=== PATIENT | female | born 1985 | race Caucasian/White ===

== ENCOUNTER 2018-05-09 21:05 | Emergency (ER) | payer SELFPAY ==
[~2018-05-09] VITALS: Ht 170.2 cm; Wt 113.4 kg
[~2018-05-09 21:05] MED LIST: ALBU8.5H2 IH; BPR100T GT; IBP800T PO; MONT10TA21 PO; SLMFT1E INH; TRM50T PO; VARE1TAB17 PO
--- OUTSIDE RECORDS SUMMARY | 2018-05-09 21:09 | XMS REPORT ---
Author LEIF Redmond Organization [employer] Address Unknown Phone Unavailable Care Team Providers Care Industrial Cook Name Role Phone LEIF MONROE CP Unavailable Allergies, Adverse Reactions, Alerts Substance Reaction Event Type Latex, Natural Rubber Info Not Available Non Drug Allergy Problems Problem Type Condition Code Onset Dates Condition Status Assessment Tinea versicolor B36.0 Active Problem Tinea versicolor B36.0 Active Medications Medication Code System Code Instructions Start Date End Date Status Dosage Ketoconazole [facility] [address]-78 200 MG Orally Once a day November 08, 2015 December 08, 2015 1 tablet Ketoconazole [facility] [address]-46 2 % Externally Once a day November 08, 2015 1 application to affected area Procedures Procedure Coding System Code Date Office Visit, New Pt., Level 3 CPT-4 20141 November 08, 2015 Vital Signs Date/Time: November 08, 2015 Temperature 98.3 F Weight 303 lbs Height 67 in BMI 47.45 Index Blood Pressure Diastolic 76 mmHg Blood Pressure Systolic 120 mmHg Cardiac Monitoring Heart Rate 88 bpm Results No Known Results Summary Purpose eClinicalWorks Submission
--- OUTSIDE RECORDS SUMMARY | 2018-05-09 21:09 | XMS REPORT ---
Author Author LEIF MONROE [facility] Address [address] [place] [address] Care Team Providers Care Crystallography Teacher Name Role Phone LEIF MONROE Unavailable PROBLEMS Type Condition ICD9-CM Code IKG61-OD Code Onset Dates Condition Status SNOMED Code Problem Acquired hypothyroidism E03.9 Active 787370918 Problem Bronchitis J40 Active 59551943 Problem Obesity E66.9 Active 554601388 Problem Tinea versicolor B36.0 Active 49760421 Problem Moderate single current episode of major depressive disorder F32.1 Active 63611713 Problem Irregular menses N92.6 Active 79241401 ALLERGIES Substance Reaction Event Type Date Status Latex, Natural Rubber Unknown Non Drug Allergy Sep, Active SOCIAL HISTORY Never Assessed PLAN OF CARE Activity Details Follow Up 4 Weeks Reason:recheck hypothyroid VITAL SIGNS Height 67 in 2016-10-10 Weight 335.6 lbs 2016-10-10 Temperature 98.4 degrees Fahrenheit 2016-10-10 Heart Rate 88 bpm 2016-10-10 Respiratory Rate 18 2016-10-10 BMI 52.56 kg/m2 2016-10-10 Blood pressure systolic 132 mmHg 2016-10-10 Blood pressure diastolic 84 mmHg 2016-10-10 MEDICATIONS Medication Instructions Dosage Frequency Start Date End Date Duration Status PredniSONE 10 mg Orally twice a day 1 tablet 12h Sep, Sep, 05 days Active Amoxicillin 875 MG Orally every 12 hrs 1 tablet 12h Sep, Sep, 10 day(s) Active ProAir HFA 108 (90 Base) MCG/ACT Inhalation every 4 hrs 2 puffs as needed 4h Sep, Active Lexapro 10 mg Orally Once a day 1 tablet 24h Sep, 30 day(s) Active RESULTS Name Result Date Reference Range TSH W/ FREE T4 2016-10-10 TSH 7.190 0.450-4.500 T4,Free(Direct) 0.78 0.82-1.77 CBC 2016-10-10 WBC 7.6 3.4-10.8 RBC 4.73 3.77-5.28 Hemoglobin 13.0 11.1-15.9 Hematocrit 39.9 34.0-46.6 MCV 84 79-97 MCH 27.5 26.6-33.0 MCHC 32.6 31.5-35.7 RDW 14.1 12.3-15.4 Platelets 280 150-379 Neutrophils 66 Lymphs 23 Monocytes 9 Eos 2 Basos 0 Neutrophils (Absolute) 4.9 1.4-7.0 Lymphs (Absolute) 1.8 0.7-3.1 Monocytes(Absolute) 0.7 0.1-0.9 Eos (Absolute) 0.2 0.0-0.4 Baso (Absolute) 0.0 0.0-0.2 Immature Granulocytes 0 Immature Grans (Abs) 0.0 0.0-0.1 LIPID PANEL 2016-10-10 Cholesterol, Total 199 100-199 Triglycerides 123 0-149 HDL Cholesterol 33 >39 VLDL Cholesterol Doron 25 5-40 LDL Cholesterol Calc 141 0-99 CMP 2016-10-10 Glucose, Serum 115 65-99 BUN 11 6-20 Creatinine, Serum 0.57 0.57-1.00 eGFR If NonAfricn Am 124 >59 eGFR If Africn Am 143 >59 BUN/Creatinine Ratio 19 8-20 Sodium, Serum 141 134-144 Potassium, Serum 4.8 3.5-5.2 Chloride, Serum 104 96-106 Carbon Dioxide, Total 21 18-29 Calcium, Serum 8.9 8.7-10.2 Protein, Total, Serum 6.7 6.0-8.5 Albumin, Serum 3.7 3.5-5.5 Globulin, Total 3.0 1.5-4.5 A/G Ratio 1.2 1.2-2.2 Bilirubin, Total <0.2 0.0-1.2 Alkaline Phosphatase, S 138 39-117 AST (SGOT) 12 0-40 ALT (SGPT) 22 0-32 PROCEDURES Procedure Date Ordered Result Body Site ASSAY THYROID STIM HORMONE October 10, 2016 ASSAY OF FREE THYROXINE October 10, 2016 VENIPUNCT, ROUTINE* October 10, 2016 COMPREHEN METABOLIC PANEL October 10, 2016 COMPLETE CBC W/AUTO DIFF WBC October 10, 2016 LIPID PANEL October 10, 2016 IMMUNIZATIONS No Known Immunizations MEDICAL (GENERAL) HISTORY Type Description Date Medical History asthma Medical History Hypothyroidism Surgical History cholecystectomy 2002 Surgical History tubal ligation 07/2015 Hospitalization History surgeries
--- OUTSIDE RECORDS SUMMARY | 2018-05-09 21:09 | XMS REPORT ---
Author Author LEIF MONROE [facility] e[employer] Address Unknown Phone Unavailable Care Team Providers Care Forensic Chemist Name Role Phone LEIF MONROE Unavailable Allergies No Known Allergies Problems Problem Type Condition Code Onset Dates Condition Status Problem Irregular menses N92.6 Active Problem Obesity E66.9 Active Problem Post- depression F53 Active Problem Tinea versicolor B36.0 Active Medications Medication Code System Code Instructions Start Date End Date Status Dosage Levothyroxine Sodium [facility] [address]-78 75 MCG Orally Once a day November 24, 2015 1 tablet Results No Known Results Summary Purpose eClinicalWorks Submission
--- OUTSIDE RECORDS SUMMARY | 2018-05-09 21:09 | XMS REPORT ---
Author Author LEIF MONROE [facility] Address [address] [place] [address] Care Team Providers Care Pediatric Speech Therapist Name Role Phone LEIF MONROE Unavailable PROBLEMS Type Condition ICD9-CM Code VIQ91-DM Code Onset Dates Condition Status SNOMED Code Problem Acquired hypothyroidism E03.9 Active 735566788 Problem Bronchitis J40 Active 74632104 Problem Obesity E66.9 Active 712827556 Problem Tinea versicolor B36.0 Active 51833509 Problem Moderate single current episode of major depressive disorder F32.1 Active 98578071 Problem Irregular menses N92.6 Active 37018394 ALLERGIES No Information SOCIAL HISTORY Never Assessed PLAN OF CARE VITAL SIGNS MEDICATIONS Medication Instructions Dosage Frequency Start Date End Date Duration Status Levothyroxine Sodium 100 MCG Orally Once a day 1 tablet on an empty stomach in the morning 24h Sep, 30 day(s) Active RESULTS No Results PROCEDURES No Known procedures IMMUNIZATIONS No Known Immunizations MEDICAL (GENERAL) HISTORY Type Description Date Medical History asthma Medical History Hypothyroidism Surgical History cholecystectomy 2003 Surgical History tubal ligation 07/2015 Hospitalization History surgeries
--- OUTSIDE RECORDS SUMMARY | 2018-05-09 21:10 | XMS REPORT | Continuity of Care Document ---
Author Author [facility] Address Unknown Phone Unavailable Allergies Active Description Code Type Severity Reaction Onset Reported/Identified Relationship to Patient Clinical Status Yes No Known Drug Allergies [id number] Drug Allergy Unknown N/A 08/04/2012 Yes Latex, Natural Rubber Drug Allergy N/A N/A 05/30/2013 Medications There is no data. Problems Date Dx Coded Attending Type Code Diagnosis Diagnosed By 06/06/2011 V25.09 OTHER GENERAL COUNSELING AND ADVICE ON CONTRACEPTIVE MANAGEMENT 06/06/2011 V25.40 CONTRACEPTIVE SURVEILLANCE UNSPECIFIED 06/06/2011 V25.09 OTHER GENERAL COUNSELING AND ADVICE ON CONTRACEPTIVE MANAGEMENT 06/06/2011 V25.40 CONTRACEPTIVE SURVEILLANCE UNSPECIFIED 06/06/2011 DINORAH SCHNEIDER DO V25.09 OTHER GENERAL COUNSELING AND ADVICE ON CONTRACEPTIVE MANAGEMENT 06/06/2011 DINORAH SCHNEIDER DO V25.40 CONTRACEPTIVE SURVEILLANCE UNSPECIFIED 06/06/2011 V25.09 OTHER GENERAL COUNSELING AND ADVICE ON CONTRACEPTIVE MANAGEMENT 06/06/2011 V25.40 CONTRACEPTIVE SURVEILLANCE UNSPECIFIED 06/06/2011 V25.09 OTHER GENERAL COUNSELING AND ADVICE ON CONTRACEPTIVE MANAGEMENT 06/06/2011 V25.40 CONTRACEPTIVE SURVEILLANCE UNSPECIFIED 06/06/2011 V25.09 OTHER GENERAL COUNSELING AND ADVICE ON CONTRACEPTIVE MANAGEMENT 06/06/2011 V25.40 CONTRACEPTIVE SURVEILLANCE UNSPECIFIED 06/06/2011 V25.09 OTHER GENERAL COUNSELING AND ADVICE ON CONTRACEPTIVE MANAGEMENT 06/06/2011 V25.40 CONTRACEPTIVE SURVEILLANCE UNSPECIFIED 06/06/2011 DINORAH SCHNEIDER DO V25.09 OTHER GENERAL COUNSELING AND ADVICE ON CONTRACEPTIVE MANAGEMENT 06/06/2011 DINORAH SCHNEIDER DO V25.40 CONTRACEPTIVE SURVEILLANCE UNSPECIFIED 06/06/2011 ROLA SENIOR CARE SPECIALIST, TIFFANY A V25.09 OTHER GENERAL COUNSELING AND ADVICE ON CONTRACEPTIVE MANAGEMENT 06/06/2011 ROLA SENIOR CARE SPECIALIST, TIFFANY A V25.40 CONTRACEPTIVE SURVEILLANCE UNSPECIFIED 06/06/2011 DINORAH SCHNEIDER DO V25.09 OTHER GENERAL COUNSELING AND ADVICE ON CONTRACEPTIVE MANAGEMENT 06/06/2011 DINORAH SCHNEIDER DO V25.40 CONTRACEPTIVE SURVEILLANCE UNSPECIFIED 08/25/2011 V25.49 CONTRACEPTION SURVEILLANCE (REPEAT RX) 08/25/2011 V25.49 CONTRACEPTION SURVEILLANCE (REPEAT RX) 08/25/2011 DINORAH SCHNEIDER DO V25.49 CONTRACEPTION SURVEILLANCE (REPEAT RX) 08/25/2011 V25.49 CONTRACEPTION SURVEILLANCE (REPEAT RX) 08/25/2011 V25.49 CONTRACEPTION SURVEILLANCE (REPEAT RX) 08/25/2011 V25.49 CONTRACEPTION SURVEILLANCE (REPEAT RX) 08/25/2011 V25.49 CONTRACEPTION SURVEILLANCE (REPEAT RX) 08/25/2011 DINORAH SCHNEIDER DO V25.49 CONTRACEPTION SURVEILLANCE (REPEAT RX) 08/25/2011 TIFFANY CANELA APRN V25.49 CONTRACEPTION SURVEILLANCE (REPEAT RX) 08/25/2011 DINORAH SCHNEIDER DO V25.49 CONTRACEPTION SURVEILLANCE (REPEAT RX) 05/28/2012 784.91 POSTNASAL DRIP 05/28/2012 786.2 COUGH 05/28/2012 784.91 POSTNASAL DRIP 05/28/2012 786.2 COUGH 05/28/2012 DINORAH SCHNEIDER DO 784.91 POSTNASAL DRIP 05/28/2012 DINORAH SCHNEIDER DO 786.2 COUGH 05/28/2012 784.91 POSTNASAL DRIP 05/28/2012 786.2 COUGH 05/28/2012 784.91 POSTNASAL DRIP 05/28/2012 786.2 COUGH 05/28/2012 784.91 POSTNASAL DRIP 05/28/2012 786.2 COUGH 05/28/2012 784.91 POSTNASAL DRIP 05/28/2012 786.2 COUGH 05/28/2012 DINORAH SCHNEIDER DO 784.91 POSTNASAL DRIP 05/28/2012 DINORAH SCHNEIDER DO 786.2 COUGH 05/28/2012 TIFFANY CANELA APRN 784.91 POSTNASAL DRIP 05/28/2012 TIFFANY CANELA APRN 786.2 COUGH 05/28/2012 DINORAH SCHNEIDER DO 784.91 POSTNASAL DRIP 05/28/2012 DINORAH SCHNEIDER DO 786.2 COUGH 06/06/2012 461.9 SINUSITIS ACUTE 06/06/2012 466.0 BRONCHITIS, ACUTE 06/06/2012 493.90 ASTHMA UNSPECIFIED 06/06/2012 V65.42 COUNSELING - SMOKING CESSATION 06/06/2012 461.9 SINUSITIS ACUTE 06/06/2012 466.0 BRONCHITIS, ACUTE 06/06/2012 493.90 ASTHMA UNSPECIFIED 06/06/2012 V65.42 COUNSELING - SMOKING CESSATION 06/06/2012 JENNIE DODINORAH K 461.9 SINUSITIS ACUTE 06/06/2012 SCHNEIDER DO DINORAH K 466.0 BRONCHITIS, ACUTE 06/06/2012 SCHNEIDER DO DINORAH K 493.90 ASTHMA UNSPECIFIED 06/06/2012 SCHNEIDER DO DINORAH K V65.42 COUNSELING - SMOKING CESSATION 06/06/2012 461.9 SINUSITIS ACUTE 06/06/2012 466.0 BRONCHITIS, ACUTE 06/06/2012 493.90 ASTHMA UNSPECIFIED 06/06/2012 V65.42 COUNSELING - SMOKING CESSATION 06/06/2012 461.9 SINUSITIS ACUTE 06/06/2012 466.0 BRONCHITIS, ACUTE 06/06/2012 493.90 ASTHMA UNSPECIFIED 06/06/2012 V65.42 COUNSELING - SMOKING CESSATION 06/06/2012 461.9 SINUSITIS ACUTE 06/06/2012 466.0 BRONCHITIS, ACUTE 06/06/2012 493.90 ASTHMA UNSPECIFIED 06/06/2012 V65.42 COUNSELING - SMOKING CESSATION 06/06/2012 461.9 SINUSITIS ACUTE 06/06/2012 466.0 BRONCHITIS, ACUTE 06/06/2012 493.90 ASTHMA UNSPECIFIED 06/06/2012 V65.42 COUNSELING - SMOKING CESSATION 06/06/2012 WINSTON SCHNEIDER DOA K 461.9 SINUSITIS ACUTE 06/06/2012 WINSTON SCHNEIDER DOA K 466.0 BRONCHITIS, ACUTE 06/06/2012 WINSTON SCHNEIDER DOA K 493.90 ASTHMA UNSPECIFIED 06/06/2012 SCHNEIDER DO DINORAH K V65.42 COUNSELING - SMOKING CESSATION 06/06/2012 ROLA SENIOR CARE SPECIALIST, TIFFANY A 461.9 SINUSITIS ACUTE 06/06/2012 ROLA SENIOR CARE SPECIALIST, TIFFANY A 466.0 BRONCHITIS, ACUTE 06/06/2012 ROLA SENIOR CARE SPECIALIST, TIFFANY A 493.90 ASTHMA UNSPECIFIED 06/06/2012 ROLA SENIOR CARE SPECIALIST, TIFFANY A V65.42 COUNSELING - SMOKING CESSATION 06/06/2012 SCHNEIDER WINSTON JASMINEA K 461.9 SINUSITIS ACUTE 06/06/2012 SCHNEIDER DO, DINORAH K 466.0 BRONCHITIS, ACUTE 06/06/2012 DINORAH SCHNEIDER DO 493.90 ASTHMA UNSPECIFIED 06/06/2012 DINORAH SCHNEIDER DO V65.42 COUNSELING - SMOKING CESSATION 07/03/2012 599.0 URINARY TRACT INFECTION 07/03/2012 724.2 LUMBAGO/ LOW BACK PAIN 07/03/2012 599.0 URINARY TRACT INFECTION 07/03/2012 724.2 LUMBAGO/ LOW BACK PAIN 07/03/2012 DINORAH SCHNEIDER DO 599.0 URINARY TRACT INFECTION 07/03/2012 DINORAH SCHNEIDER DO 724.2 LUMBAGO/ LOW BACK PAIN 07/03/2012 599.0 URINARY TRACT INFECTION 07/03/2012 724.2 LUMBAGO/ LOW BACK PAIN 07/03/2012 599.0 URINARY TRACT INFECTION 07/03/2012 724.2 LUMBAGO/ LOW BACK PAIN 07/03/2012 599.0 URINARY TRACT INFECTION 07/03/2012 724.2 LUMBAGO/ LOW BACK PAIN 07/03/2012 599.0 URINARY TRACT INFECTION 07/03/2012 724.2 LUMBAGO/ LOW BACK PAIN 07/03/2012 DINORAH SCHNEIDER DO 599.0 URINARY TRACT INFECTION 07/03/2012 DINORAH SCHNEIDER DO 724.2 LUMBAGO/ LOW BACK PAIN 07/03/2012 TIFFANY CANELA APRN 599.0 URINARY TRACT INFECTION 07/03/2012 TIFFANY CANELA APRN A 724.2 LUMBAGO/ LOW BACK PAIN 08/04/2012 Ot 719.06 08/04/2012 Ot 719.46 08/12/2012 719.46 PAIN IN JOINT INVOLVING LOWER LEG 08/12/2012 DINORAH SCHNEIDER DO 719.46 PAIN IN JOINT INVOLVING LOWER LEG 08/12/2012 719.46 PAIN IN JOINT INVOLVING LOWER LEG 08/12/2012 719.46 PAIN IN JOINT INVOLVING LOWER LEG 08/12/2012 719.46 PAIN IN JOINT INVOLVING LOWER LEG 08/12/2012 719.46 PAIN IN JOINT INVOLVING LOWER LEG 08/12/2012 DINORAH SCHNEIDER DO 719.46 PAIN IN JOINT INVOLVING LOWER LEG 08/12/2012 TIFFANY CANELA APRN A 719.46 PAIN IN JOINT INVOLVING LOWER LEG 09/06/2012 DINORAH SCHNEIDER DO 278.00 OBESITY 09/06/2012 DINORAH SCHNEIDER DO V25.9 CONTRACEPTION MANAGEMENT 09/06/2012 DINORAH SCHNEIDER DO V76.2 CERVICAL CANCER SCREENING (PAP SMEAR) 09/06/2012 278.00 OBESITY 09/06/2012 V25.9 CONTRACEPTION MANAGEMENT 09/06/2012 V76.2 CERVICAL CANCER SCREENING (PAP SMEAR) 09/06/2012 278.00 OBESITY 09/06/2012 V25.9 CONTRACEPTION MANAGEMENT 09/06/2012 V76.2 CERVICAL CANCER SCREENING (PAP SMEAR) 09/06/2012 278.00 OBESITY 09/06/2012 V25.9 CONTRACEPTION MANAGEMENT 09/06/2012 V76.2 CERVICAL CANCER SCREENING (PAP SMEAR) 09/06/2012 278.00 OBESITY 09/06/2012 V25.9 CONTRACEPTION MANAGEMENT 09/06/2012 V76.2 CERVICAL CANCER SCREENING (PAP SMEAR) 09/06/2012 DINORAH SCHNEIDER DO 278.00 OBESITY 09/06/2012 DINORAH SCHNEIDER DO V25.9 CONTRACEPTION MANAGEMENT 09/06/2012 DINORHA SCHNEIDER DO V76.2 CERVICAL CANCER SCREENING (PAP SMEAR) 09/06/2012 TIFFANY CANELA APRN 278.00 OBESITY 09/06/2012 TIFFANY CANELA APRN V25.9 CONTRACEPTION MANAGEMENT 09/06/2012 TIFFANY CANELA APRN V76.2 CERVICAL CANCER SCREENING (PAP SMEAR) 10/03/2012 836.1 TEAR OF LATERAL CARTILAGE OR MENISCUS OF KNEE CURRENT 10/03/2012 836.1 TEAR OF LATERAL CARTILAGE OR MENISCUS OF KNEE CURRENT 10/03/2012 836.1 TEAR OF LATERAL CARTILAGE OR MENISCUS OF KNEE CURRENT 10/03/2012 836.1 TEAR OF LATERAL CARTILAGE OR MENISCUS OF KNEE CURRENT 10/03/2012 DINORAH SCHNEIDER DO 836.1 TEAR OF LATERAL CARTILAGE OR MENISCUS OF KNEE CURRENT 10/03/2012 TIFFANY CANELA APRN 836.1 TEAR OF LATERAL CARTILAGE OR MENISCUS OF KNEE CURRENT 12/03/2012 592.0 CALCULUS OF KIDNEY 12/03/2012 592.0 CALCULUS OF KIDNEY 12/03/2012 DINORAH SCHNEIDER DO 592.0 CALCULUS OF KIDNEY 12/03/2012 TIFFANY CANELA APRN 592.0 CALCULUS OF KIDNEY 05/30/2013 DINORAH SCHNEIDER DO 840.9 SPRAIN OF UNSPECIFIED SITE OF SHOULDER AND UPPER ARM 05/30/2013 ROLA GALLOWAY TIFFANY A 840.9 SPRAIN OF UNSPECIFIED SITE OF SHOULDER AND UPPER ARM 10/22/2014 ROLA GALLOWAYIGORTIFFANY A V22.1 , NORMAL OTHER 10/26/2014 Ot 719.06 10/26/2014 Ot 719.46 10/26/2014 Ot 727.51 10/26/2014 Ot E000.8 10/26/2014 Ot E849.0 10/26/2014 Ot E880.9 10/28/2014 Ot 719.06 10/28/2014 Ot 719.46 10/28/2014 Ot 727.51 10/28/2014 Ot E000.8 10/28/2014 Ot E849.0 10/28/2014 Ot E880.9 11/04/2014 TIFFANY CANELA APRN Ot V22.1 09/06/2015 TIFFANY CANELA APRN Ot V22.1 Procedures Code Description [place] [address] THERAPUTIC INJ SQ/IM 05/28/2012 J1055 DEPO-PROVERA INJ 150 MG 05/28/2012 99260 URINE TEST (IN- HOUSE) 05/28/2012 17063 UA W/ CULTURE IF INDICATED 07/03/2012 26608 CULTURE URINE 07/03/2012 49603 MRI EXTREMITY JOINT, LOWER LEFT, W/O CONTRAST 08/12/2012 SINDHU DE JESUS 08/12/2012 72404 THERAPUTIC INJ SQ/IM 09/06/2012 J1055 DEPO-PROVERA INJ 150 MG 09/06/2012 62039 URINE TEST (IN- HOUSE) 09/06/2012 94187 PAP SMEAR 09/09/2012 Q0091 PAP SMEAR OBTAIN SMEAR 09/09/2012 04767 THERAPUTIC INJ SQ/IM 12/26/2012 32173 URINE TEST (IN- HOUSE) 12/26/2012 J1050 DEPO PROVERA 12/26/2012 93231 US OB - EARLY <14 WEEKS 10/22/2014 35528 UA LONG DIP 10/22/2014 Results There is no data. Encounters ACCT No. Visit Date/Time Discharge Status Pt. Type Provider Facility Loc./Unit Complaint [id number] 10/22/2014 10:39:00 10/22/2014 23:59:59 CLS Outpatient TIFFANY CANELA APRN [id number] 05/30/2013 11:14:00 05/30/2013 23:59:59 CLS Outpatient DINORAH SCHNEIDER DO [id number] 10/03/2012 14:05:00 10/03/2012 23:59:59 CLS Outpatient [id number] 09/06/2012 15:25:00 09/06/2012 23:59:59 CLS Outpatient DINORAH SCHNEIDER DO [id number] 08/12/2012 16:45:00 08/12/2012 23:59:59 CLS Outpatient [id number] 07/03/2012 11:27:00 07/03/2012 23:59:59 CLS Outpatient [id number] 05/28/2012 15:15:00 05/28/2012 23:59:59 CLS Outpatient DINORAH SCHNEIDER DO [id number] 12/26/2012 12:20:00 Document Registration [id number] 12/03/2012 13:42:00 Document Registration [id number] 11/05/2012 14:12:00 Document Registration [id number] 10/29/2014 13:40:00 10/29/2014 23:59:59 CLS Outpatient TIFFANY CANELA APRN [facility] [id number] 08/16/2012 10:17:00 Document Registration [id number] 08/04/2012 18:36:00 Document Registration
[2018-05-09] MEDS: NITROGLYCERIN 0.4 MG SL TABS BTL 25'S SL PRN ×3 (21:26→21:36)
[2018-05-09 21:28] LABS: BASOPHILS % (AUTO) 0 % (0-10); EOSINOPHILS # (AUTO) 0.2 10^3/uL (0.0-0.3); EOSINOPHILS % (AUTO) 2 % (0-10); HEMATOCRIT 42 % (35-52); HEMOGLOBIN 13.8 G/DL (11.5-16.0); LYMPHOCYTES # (AUTO) 3.9 X 10^3 (1.0-4.0); LYMPHOCYTES % (AUTO) 36 % (12-44); MEAN CORPUSCULAR HEMOGLOBIN 29 PG (25-34); MEAN CORPUSCULAR HGB CONC 33 G/DL (32-36); MEAN CORPUSCULAR VOLUME 87 FL (80-99); MEAN PLATELET VOLUME 10.8 FL (7.4-10.4); MONOCYTES # (AUTO) 0.8 X 10^3 (0.0-1.0); MONOCYTES % (AUTO) 7 % (0-12); NEUTROPHILS # (AUTO) 5.8 X 10^3 (1.8-7.8); NEUTROPHILS % (AUTO) 54 % (42-75); PLATELET COUNT 306 10^3/uL (130-400); RED CELL DISTRIBUTION WIDTH 14.2 % (10.0-14.5); WHITE BLOOD COUNT 10.7 10^3/uL (4.3-11.0)
[2018-05-09] MEDS ORDERED: ASPIRIN 81 MG CHEW (CHILDREN'S ASA) PO ONE (21:30)
[2018-05-09 21:39] LABS: INR 0.9 (0.8-1.4); PROTHROMBIN TIME PATIENT 12.2 SEC (12.2-14.7)
[2018-05-09] MEDS ORDERED: NITROGLYCERIN 2% OINT 1 GM UNIT DOSE PACKET TOP ONE (21:45)
[2018-05-09 21:46] LABS: ALANINE AMINOTRANSFERASE 33 U/L (0-55); ALBUMIN 3.9 GM/DL (3.2-4.5); ALKALINE PHOSPHATASE 116 U/L (40-136); AMYLASE 25 U/L (25-125); BILIRUBIN,TOTAL 0.4 MG/DL (0.1-1.0); BUN/CREATININE RATIO 18; CALCIUM 8.9 MG/DL (8.5-10.1); CARBON DIOXIDE 19 MMOL/L (21-32); CHLORIDE 109 MMOL/L (98-107); CREATINE KINASE 42 U/L (29-168); CREATININE SERUM 0.83 MG/DL (0.60-1.30); GFR ESTIMATED > 60; GLUCOSE 106 MG/DL (70-105); MAGNESIUM 2.4 MG/DL (1.8-2.4); POTASSIUM 4.1 MMOL/L (3.6-5.0); SODIUM 138 MMOL/L (135-145); TOTAL PROTEIN 6.9 GM/DL (6.4-8.2)
--- NOTE | 2018-05-09 21:51 | Diagnostic Imaging Report ---
Indication: Chest pain Upright portable chest shows normal heart size and vascularity. The lungs are clear. There is no effusion or pneumothorax. There is no bony normality. Impression: Normal chest. Dictated by: Dictated on workstation # [id number]
[2018-05-09 21:54] LABS: CREATINE KINASE MB 0.7 NG/ML (<6.6); MYOGLOBIN SERUM 12.4 NG/ML (10.0-92.0)
[2018-05-09] MEDS ORDERED: KETOROLAC 30 MG/ML VIAL IVP ONE (22:15)
[2018-05-09] MEDS ORDERED: LABETALOL HCL 20 MG/4 ML VIAL IV ONE (22:30)
[2018-05-09] MEDS ORDERED: IOHEXOL 350 MG/ML 150 ML (OMNIPAQUE 350) VIAL IV ONE (23:00)
[2018-05-09] MEDS ORDERED: NS 250 ML (IVPB) BAG IV ONE (23:00)
[2018-05-10] MEDS ORDERED: LIDOCAINE 2% VISCOUS 15 ML UDC PO ONE
[2018-05-10] MEDS ORDERED: ANTACID SUSP 30 ML UDC (MYLANTA) PO ONE
[2018-05-10] MEDS ORDERED: PANTOPRAZOLE 40 MG (PROTONIX) VIAL IV ONE
[2018-05-10] MEDS ORDERED: PANT40TA2 PO (01:35)
--- NOTE | 2018-05-10 01:35 | ED Chest Pain ---
General Chief Complaint: Chest Pain Stated Complaint: CP, L ARM PAIN Allergies and Home Medications Allergies Coded Allergies: No Known Drug Allergies (Unverified , 08/04/12) Home Medications Albuterol 8.5 Gm Hfa.aer.ad, 8.5 GM IH Q4H, (Reported) 2 PUFFS Ibuprofen 800 Mg Tab, 800 MG PO Q8HR PRN Prescribed by: LESA AGGARWAL on 08/04/121937 Salmeterol Xinaf/Fluticasone 1 Diskus Inhp, 0 INH Q12HR, (Reported) 1 PUFF Tramadol Hcl 50 Mg Tab, 50 MG PO Q4H Prescribed by: LESA AGGARWAL on 08/04/121937 Past Uernftp-Jsysbu-Jgvwop Hx Patient Social History Recent Foreign Travel: No Contact w/Someone Who Travel: No Past Medical History Asthma Reproductive Disorders: No Anxiety Physical Exam Vital Signs Capillary Refill : Height, Weight, BMI Height: '" Weight: lbs. oz. kg; BMI Method:Stated Progress/Results/Core Measures Results/Orders Lab Results Laboratory Tests Test 05/09/18 01:05 05/09/18 21:15 05/10/18 00:26 Range/Units White Blood Count 10.7 4.3-11.0 10^3/uL Red Blood Count 4.80 4.35-5.85 10^6/uL Hemoglobin 13.8 11.5-16.0 G/DL Hematocrit 42 35-52 % Mean Corpuscular Volume 87 80-99 FL Mean Corpuscular Hemoglobin 29 25-34 PG Mean Corpuscular Hemoglobin Concent 33 32-36 G/DL Red Cell Distribution Width 14.2 10.0-14.5 % Platelet Count 306 130-400 10^3/uL Mean Platelet Volume 10.8 H 7.4-10.4 FL Neutrophils (%) (Auto) 54 42-75 % Lymphocytes (%) (Auto) 36 12-44 % Monocytes (%) (Auto) 7 0-12 % Eosinophils (%) (Auto) 2 0-10 % Basophils (%) (Auto) 0 0-10 % Neutrophils # (Auto) 5.8 1.8-7.8 X 10^3 Lymphocytes # (Auto) 3.9 1.0-4.0 X 10^3 Monocytes # (Auto) 0.8 0.0-1.0 X 10^3 Eosinophils # (Auto) 0.2 0.0-0.3 10^3/uL Basophils # (Auto) 0.0 0.0-0.1 10^3/uL Prothrombin Time 12.2 12.2-14.7 SEC INR Comment 0.9 0.8-1.4 Activated Partial Thromboplast Time 26 24-35 SEC Sodium Level 138 135-145 MMOL/L Potassium Level 4.1 3.6-5.0 MMOL/L Chloride Level 109 H 98-107 MMOL/L Carbon Dioxide Level 19 L 21-32 MMOL/L Anion Gap 10 5-14 MMOL/L Blood Urea Nitrogen 15 7-18 MG/DL Creatinine 0.83 0.60-1.30 MG/DL Estimat Glomerular Filtration Rate > 60 BUN/Creatinine Ratio 18 Glucose Level 106 H 70-105 MG/DL Calcium Level 8.9 8.5-10.1 MG/DL Corrected Calcium 9.0 8.5-10.1 MG/DL Magnesium Level 2.4 1.8-2.4 MG/DL Total Bilirubin 0.4 0.1-1.0 MG/DL Aspartate Amino Transf (AST/SGOT) 15 5-34 U/L Alanine Aminotransferase (ALT/SGPT) 33 0-55 U/L Alkaline Phosphatase 116 40-136 U/L Total Creatine Kinase 42 29-168 U/L Creatine Kinase MB 0.7 <6.6 NG/ML Myoglobin 12.4 10.0-92.0 NG/ML Troponin I < 0.30 < 0.30 <0.30 NG/ML B-Type Natriuretic Peptide 20.3 <100.0 PG/ML Total Protein 6.9 6.4-8.2 GM/DL Albumin 3.9 3.2-4.5 GM/DL Amylase Level 25 25-125 U/L Lipase 5 L 8-78 U/L Serum Test, Qualitative NEGATIVE NEGATIVE My Orders Orders - JYOTHI MCDOWELL DO Cbc With Automated Diff (05/09/18 21:19) Magnesium (05/09/18 21:19) Chest 1 View, Ap/Pa Only (05/09/18 21:19) Ekg Tracing (05/09/18 21:19) Cardiac Profile 1 (05/09/18 21:19) Comprehensive Metabolic Panel (05/09/18 21:19) Myoglobin Serum (05/09/18 21:) Protime With Inr (05/09/18:) Partial Thromboplastin Time (05/09/18:) O2 (05/09/18 21:) Monitor-Rhythm Ecg Trace Only (05/09/18:) Lipid Panel (05/10/18 06:00) Aspirin Chewable Tablet (Baby Aspirin Ch (05/09/18 21:30) Nitroglycerin 0.4 Mg Btl 25's (Nitrostat (05/09/18 21:30) Saline Lock/Iv-Start (05/09/18 21:) Creatine Kinase (05/09/18:) Creatine Kinase Mb (05/09/18:) Amylase (05/09/18:) BNP (05/09/18:) Drug Screen Stat (Urine) (05/09/18 21:) Hcg,Qualitative Serum (05/09/18:) Lipase (05/09/18:) Nitroglycerin Ointment (Nitrobid Ointme (05/09/18 21:45) Ketorolac Injection (Toradol Injection) (05/09/18 22:15) Labetalol Injection (Normodyne Injection (05/09/18 22:30) Ct Angio Chest W (05/09/18 22:23) Iohexol Injection (Omnipaque 350 Mg/Ml 1 (05/09/18 23:00) Ns (Ivpb) (Sodium Chloride 0.9%) (05/09/18 23:00) Pharmacy Communication (Pharmacy Communi (05/09/18 23:00) Antacid Suspension (Mylanta Suspension (05/10/18 00:00) Lidocaine 2% Viscous 15 Ml (Xylocaine Vi (05/10/18 00:00) Pantoprazole Injection (Protonix Injecti (05/10/18 00:00) Ekg Tracing (05/10/18 00:03) Troponin I (05/10/18 00:03) Medications Given in ED Current Medications Medications Dose Ordered Sig/Richard Route Start Time Stop Time Status Last Admin Dose Admin Al Hydrox/Mg Hydrox/Simethicone 30 ml ONCE ONCE PO 05/10/18 00:00 05/10/18 00:01 DC 05/10/18 00:27 30 ML Iohexol 150 ml ONCE ONCE IV 05/09/18 23:00 05/09/18 23:01 DC 05/09/18 23:02 125 ML Ketorolac Tromethamine 30 mg ONCE ONCE IVP 05/09/18 22:15 05/09/18 22:16 DC 05/09/18 22:29 30 MG Labetalol HCl 10 mg ONCE ONCE IV 05/09/18 22:30 05/09/18 23:35 DC 05/09/18 22:29 10 MG Lidocaine HCl 15 ml ONCE ONCE PO 05/10/18 00:00 05/10/18 00:01 DC 05/10/18 00:27 15 ML Pantoprazole 40 mg ONCE ONCE IV 05/10/18 00:00 05/10/18 00:01 DC 05/10/18 00:27 40 MG Sodium Chloride 250 ml ONCE ONCE IV 05/09/18 23:00 05/09/18 23:01 DC 05/09/18 23:02 80 ML Departure Impression Primary Impression: Chest pain Additional Impressions: HTN (hypertension) Anxiety Disposition: HOME, SELF-CARE Condition: Improved Departure-Patient Inst. Referrals: NO,LOCAL PHYSICIAN (PCP/Family) Primary Care Physician Patient Instructions: Anxiety, Adult (DC), Chest Pain (DC), Controlling Your Blood Pressure Through Lifestyle, High Blood Pressure (DC) Add. Discharge Instructions: LOTS OF CLEAR LIQUIDS TYLENOL AND MOTRIN NEEDED FOR PAIN FOLLOW UP WITH YOUR DR TOMORROW OR SUNDAY FOR FURTHER CARE RETURN TO ER IF WORSE All discharge instructions reviewed with patient and/or family. Voiced understanding. Scripts Pantoprazole Sodium (Protonix) 40 Mg Tablet. 40 MG PO DAILY, #15 TAB Prov: JYOTHI MCDOWELL DO 05/10/18 JYOTHI MCDOWELL DO May 10, 2018 01:35
[2018-05-10 01:38] LABS: AMPHETAMINE SCREEN, URINE NEGATIVE (NEGATIVE); BARBITURATE SCREEN URINE NEGATIVE (NEGATIVE); BENZODIAZEPINES SCREEN URINE NEGATIVE (NEGATIVE); CANNABINOID SCREEN, URINE NEGATIVE (NEGATIVE); COCAINE SCREEN URINE NEGATIVE (NEGATIVE); METHADONE STAT NEGATIVE (NEGATIVE); METHAMPHETAMINE SCREEN URINE S NEGATIVE (NEGATIVE); OPIATE SCREEN URINE NEGATIVE (NEGATIVE); OXYCODONE STAT NEGATIVE (NEGATIVE); PROPOXYPHENE STAT NEGATIVE (NEGATIVE); TRICYCLIC ANTIDEPRESSANTS SCRE NEGATIVE (NEGATIVE)
[2018-05-10 01:59] VITALS: BP 126/95
--- NOTE | 2018-05-10 06:33 | Diagnostic Imaging Report ---
PROCEDURE: CT angiography of the chest with contrast. TECHNIQUE: Multiple contiguous axial images were obtained through the chest after uneventful bolus administration of intravenous contrast. 2D reconstructed CTA MIP acquisitions were also performed. INDICATION: Chest pain. FINDINGS: Lungs are clear. There is minimal emphysematous changes in the lung bases. There are no pulmonary emboli. Aorta appears normal. There is no hilar or mediastinal lymphadenopathy. IMPRESSION: Emphysematous changes at the lung bases. No acute abnormality is seen in the chest. I agree with preliminary interpretation. Dictated by: Dictated on workstation # [id number]
== END 2018-05-10 02:04 | disposition home or self-care (01) ==
LOC: EDUNIT# 21:05 → ER 21:06
DX: R07.9 Chest pain, unspecified (principal); F41.9 Anxiety disorder, unspecified; I10 Essential (primary) hypertension; J45.909 Unspecified asthma, uncomplicated; Z79.51 Long term (current) use of inhaled steroids
CPT/HCPCS: 36415; 71045; 71275; 80053; 80306; 82150; 82550; 82553; 83690; 83735; 83874; 83880; 84484; 84703; 85025; 85610; 85730; 93005; 93041; 96374; 96375

== ENCOUNTER 2018-10-28 13:12 | Emergency (ER) | payer SELFPAY ==
[~2018-10-28] VITALS: Ht 170.2 cm; Wt 142.9 kg
[~2018-10-28 13:12] MED LIST changes: +PANT40TA2 PO
--- OUTSIDE RECORDS SUMMARY | 2018-10-28 13:16 | XMS REPORT ---
Author Author Migration, Doctor Organization [facility] Address Unknown Phone Unavailable Care Team Providers Care Diver Assistant Name Role Phone Migration, Doctor Unavailable Unavailable PROBLEMS Type Condition ICD9-CM Code OUW41-IB Code Onset Dates Condition Status SNOMED Code Problem Bronchitis J40 Active 68953734 Problem Acquired hypothyroidism E03.9 Active 006794347 Problem Tinea versicolor B36.0 Active 81067985 Problem Obesity E66.9 Active 996713079 Problem Irregular menses N92.6 Active 66246603 Problem Moderate single current episode of major depressive disorder F32.1 Active 97337244 ALLERGIES No Information ENCOUNTERS Encounter Location Date Diagnosis [facility] IN [facility] [address] [address] Jul, BMI 50.0-59.9, adult Z68.43 ; Sore throat J02.9 and Viral upper respiratory tract infection J06.9 [facility] [id number] [place] [address] Jul, BMI 50.0-59.9, adult Z68.43 [place] [id number] [place] [address] Sep, [place] [address] [address] Sep, Acquired hypothyroidism E03.9 ; Obesity E66.9 ; Bronchitis J40 ; Moderate single current episode of major depressive disorder F32.1 and Screening cholesterol level Z13.220 [place] [address] [address] November, [place] [id number] [place] [address] November, Post- depression F53 ; Obesity E66.9 and Irregular menses N92.6 [place] [address] [id number] [place] [address] 18 Oct, 2015 Tinea versicolor B36.0 [facility] [address] [id number] [place] [address] 14 Oct, 2014 [facility] [address] [id number] [place] [address] 13 Oct, 2014 [facility] [address] [id number] [place] [address] May, [facility] [address] [id number] [place] [address] May, [facility] [address] [id number] [place] [address] Dec, [facility] [address] [id number] [place] [address] November, [facility] [address] [id number] [place] [address] November, [facility] [address] [id number] [place] [address] Oct, [facility] [address] [id number] [place] [address] Sep, [facility] [address] [id number] [place] [address] Aug, [facility] [place] [facility] [address] [id number] [place] [address] Aug, [facility] [place] [facility] [address] [id number] [place] [address] Aug, [facility] [address] [id number] [place] [address] Jul, [facility] [place] [facility] [address] [id number] [place] [address] Jun, [facility] [id number] [address] Jun, [facility] [id number] [address] May, [facility] [id number] [address] May, [facility] [id number] [place] [address] May, [facility] [id number] [address] May, [facility] [id number] [place] [address] May, [facility] [id number] [place] [address] May, [facility] [id number] [place] [address] May, [facility] [id number] [address] May, [facility] [id number] [address] Aug, [facility] [id number] [address] May, [facility] [id number] [address] May, IMMUNIZATIONS No Known Immunizations SOCIAL HISTORY Never Assessed REASON FOR VISIT EMR-[facility] [place]AN OF CARE VITAL SIGNS MEDICATIONS No Known Medications RESULTS No Results PROCEDURES No Known procedures INSTRUCTIONS MEDICATIONS ADMINISTERED No Known Medications MEDICAL (GENERAL) HISTORY Type Description Date Medical History asthma Medical History Hypothyroidism Surgical History cholecystectomy 2003 Surgical History tubal ligation 07/2015 Hospitalization History surgeries
--- OUTSIDE RECORDS SUMMARY | 2018-10-28 13:17 | XMS REPORT | Continuity of Care Document ---
Author Organization Unknown Address Unknown Allergies Active Description Code Type Severity Reaction Onset Reported/Identified Relationship to Patient Clinical Status Yes No Known Drug Allergies [id number] Drug Allergy Unknown N/A 08/04/2012 Yes Latex, [...] DO V25.40 CONTRACEPTIVE SURVEILLANCE UNSPECIFIED 06/06/2011 ROLA SERVICE BAR CASHIER, TIFFANY A V25.09 OTHER GENERAL COUNSELING AND ADVICE ON CONTRACEPTIVE MANAGEMENT 06/06/2011 ROLA SERVICE BAR CASHIER, TIFFANY A V25.40 CONTRACEPTIVE SURVEILLANCE UNSPECIFIED 06/06/2011 [...] 06/06/2012 V65.42 COUNSELING - SMOKING CESSATION 06/06/2012 DINORAH SCHNEIDER DO K 461.9 SINUSITIS ACUTE 06/06/2012 DINORAH SCHNEIDER DO K 466.0 BRONCHITIS, ACUTE 06/06/2012 WINSTON SCHENIDER DOA K 493.90 ASTHMA UNSPECIFIED 06/06/2012 WINSTON SCHNEIDER DOA K V65.42 COUNSELING - SMOKING CESSATION 06/06/2012 [...] 06/06/2012 V65.42 COUNSELING - SMOKING CESSATION 06/06/2012 DINORAH SCHNEIDER DO K 461.9 SINUSITIS ACUTE 06/06/2012 WINSTON SCHNEIDER DOA K 466.0 BRONCHITIS, ACUTE 06/06/2012 WINSTON SCHNEIDER DOA K 493.90 ASTHMA UNSPECIFIED 06/06/2012 WINSTON SCHNEIDER DOA K V65.42 COUNSELING - SMOKING CESSATION 06/06/2012 ROLA SERVICE BAR CASHIER, TIFFANY A 461.9 SINUSITIS ACUTE 06/06/2012 ROLA SERVICE BAR CASHIER, TIFFANY A 466.0 BRONCHITIS, ACUTE 06/06/2012 ROLA SERVICE BAR CASHIER, TIFFANY A 493.90 ASTHMA UNSPECIFIED 06/06/2012 ROLA SERVICE BAR CASHIER, TIFFANY A V65.42 COUNSELING - SMOKING CESSATION 06/06/2012 WINSTON SCHNEIDER DOA K 461.9 SINUSITIS ACUTE 06/06/2012 WINSTON SCHNEIDER DOA K 466.0 BRONCHITIS, ACUTE 06/06/2012 DINORAH SCHNEIDER [...] URINARY TRACT INFECTION 07/03/2012 TIFFANY CANELA APRN 724.2 LUMBAGO/ LOW BACK PAIN 08/04/2012 Ot [...] INVOLVING LOWER LEG 08/12/2012 TIFFANY CANELA APRN 719.46 PAIN IN JOINT INVOLVING LOWER LEG [...] SITE OF SHOULDER AND UPPER ARM 05/30/2013 TIFFANY CANELA APRN 840.9 SPRAIN OF UNSPECIFIED SITE OF SHOULDER AND UPPER ARM 10/22/2014 TIFFANY CANELA APRN V22.1 , NORMAL OTHER 10/26/2014 Ot 719.06 10/26/2014 Ot 719.46 10/26/2014 Ot 727.51 10/26/2014 Ot E000.8 10/26/2014 Ot E849.0 10/26/2014 Ot E880.9 10/28/2014 Ot 719.06 10/28/2014 Ot 719.46 10/28/2014 Ot 727.51 10/28/2014 Ot E000.8 10/28/2014 Ot E849.0 10/28/2014 Ot E880.9 11/04/2014 TIFFANY CANELA NILESH Ot V22.1 09/06/2015 TIFFANY CANELA NILESH Ot V22.1 05/10/2018 JEREMIAS JASMINEJYOTHI Ot F41.9 ANXIETY DISORDER, UNSPECIFIED 05/10/2018 JEREMIAS JASMINE JYOTHI K Ot I10 ESSENTIAL (PRIMARY) HYPERTENSION 05/10/2018 JEREMIAS JASMINE JYOTHI K Ot J45.909 UNSPECIFIED ASTHMA, UNCOMPLICATED 05/10/2018 JEREMIAS JASMINE JYOTHI K Ot R07.9 CHEST PAIN, UNSPECIFIED 05/10/2018 JEREMIAS JYOTHI K Ot Z79.51 FOOD AND BEVERAGE SERVER (CURRENT) USE OF INHALED STERO 05/10/2018 TIFFANY CANELA APRN Ot V22.1 SUPERVIS OTH NORMAL PREG 05/13/2018 JEREMIAS JASMINE JYOTHI Natalia Ot F41.9 ANXIETY DISORDER, UNSPECIFIED 05/13/2018 JEREMIAS DO JYOTHI K Ot I10 ESSENTIAL (PRIMARY) HYPERTENSION 05/13/2018 JEREMIAS JASMINE JYOTHI K Ot J45.909 UNSPECIFIED ASTHMA, UNCOMPLICATED 05/13/2018 JEREMIAS JASMINE JYOTHI K Ot R07.9 CHEST PAIN, UNSPECIFIED 05/13/2018 JEREMIAS JYOTHI K Ot Z79.51 FOOD AND BEVERAGE SERVER (CURRENT) USE OF INHALED STERO 10/28/2018 TIFFANY CANELA NILESH Ot V22.1 SUPERVIS OTH NORMAL PREG Procedures Code [place] [address] THERAPUTIC INJ SQ/IM 05/28/2012 J1055 DEPO-PROVERA INJ 150 MG 05/28/2012 12034 URINE TEST (IN- HOUSE) 05/28/2012 17411 UA W/ CULTURE IF INDICATED 07/03/2012 30030 CULTURE URINE 07/03/2012 08678 MRI EXTREMITY JOINT, LOWER LEFT, W/O CONTRAST 08/12/2012 SINDHU DE JESUS 08/12/2012 52040 THERAPUTIC INJ SQ/IM 09/06/2012 J1055 DEPO-PROVERA INJ 150 MG 09/06/2012 56996 URINE TEST (IN- HOUSE) 09/06/2012 03139 PAP SMEAR 09/09/2012 Q0091 PAP SMEAR OBTAIN SMEAR 09/09/2012 95731 THERAPUTIC INJ SQ/IM 12/26/2012 99673 URINE TEST (IN- HOUSE) 12/26/2012 J1050 DEPO PROVERA 12/26/2012 91059 US OB - EARLY <14 WEEKS 10/22/2014 61398 UA LONG DIP 10/22/2014 Results Test Result Range TSH+Free T4 - 10/10/16 09:10 TSH 7.190 uIU/mL 0.450-4.500 T4,Free(Direct) 0.78 ng/dL 0.82-1.77 CBC With Differential/Platelet - 10/10/16 09:10 WBC 7.6 x10E3/uL 3.4-10.8 RBC 4.73 x10E6/uL 3.77-5.28 Hemoglobin 13.0 g/dL 11.1-15.9 Hematocrit 39.9 % 34.0-46.6 MCV 84 fL 79-97 MCH 27.5 pg 26.6-33.0 MCHC 32.6 g/dL 31.5-35.7 RDW 14.1 % 12.3-15.4 Platelets 280 x10E3/uL 150-379 Neutrophils 66 % Lymphs 23 % Monocytes 9 % Eos 2 % Basos 0 % Neutrophils (Absolute) 4.9 x10E3/uL 1.4-7.0 Lymphs (Absolute) 1.8 x10E3/uL 0.7-3.1 Monocytes(Absolute) 0.7 x10E3/uL 0.1-0.9 Eos (Absolute) 0.2 x10E3/uL 0.0-0.4 Baso (Absolute) 0.0 x10E3/uL 0.0-0.2 Immature Granulocytes 0 % Immature Grans (Abs) 0.0 x10E3/uL 0.0-0.1 Comp. Metabolic Panel (14) - 10/10/16 09:10 Glucose, Serum 115 mg/dL 65-99 BUN 11 mg/dL 6-20 Creatinine, Serum 0.57 mg/dL 0.57-1.00 eGFR If NonAfricn Am 124 mL/min/1.73 >59 eGFR If Africn Am 143 mL/min/1.73 >59 BUN/Creatinine Ratio 19 8-20 Sodium, Serum 141 mmol/L 134-144 Potassium, Serum 4.8 mmol/L 3.5-5.2 Chloride, Serum 104 mmol/L 96-106 Carbon Dioxide, Total 21 mmol/L 18-29 Calcium, Serum 8.9 mg/dL 8.7-10.2 Protein, Total, Serum 6.7 g/dL 6.0-8.5 Albumin, Serum 3.7 g/dL 3.5-5.5 Globulin, Total 3.0 g/dL 1.5-4.5 A/G Ratio 1.2 1.2-2.2 Bilirubin, Total <0.2 mg/dL 0.0-1.2 Alkaline Phosphatase, S 138 IU/L 39-117 AST (SGOT) 12 IU/L 0-40 ALT (SGPT) 22 IU/L 0-32 Lipid Panel - 10/10/16 09:10 Cholesterol, Total 199 mg/dL 100-199 Triglycerides 123 mg/dL 0-149 HDL Cholesterol 33 mg/dL >39 VLDL Cholesterol Doron 25 mg/dL 5-40 LDL Cholesterol Calc 141 mg/dL 0-99 Urine drug screening test - 05/09/18 01:05 Urine phencyclidine detection by screening method NEGATIVE NEGATIVE Urine benzodiazepines detection by screening method NEGATIVE NEGATIVE Urine cocaine detection NEGATIVE NEGATIVE Urine amphetamines detection by screening method NEGATIVE NEGATIVE Urine methamphetamine detection by screening method NEGATIVE NEGATIVE Urine cannabinoids detection by screening method NEGATIVE NEGATIVE Urine opiates detection by screening method NEGATIVE NEGATIVE Urine barbiturates detection NEGATIVE NEGATIVE Screening urine tricyclic antidepressants detection NEGATIVE NEGATIVE Urine methadone detection by screening method NEGATIVE NEGATIVE Urine oxycodone detection NEGATIVE NEGATIVE Urine propoxyphene detection NEGATIVE NEGATIVE Complete blood count (CBC) with automated white blood cell (WBC) differential - 05/09/18 21:15 Blood leukocytes automated count (number/volume) 10.7 10*3/uL 4.3-11.0 Blood erythrocytes automated count (number/volume) 4.80 10*6/uL 4.35-5.85 Venous blood hemoglobin measurement (mass/volume) 13.8 g/dL 11.5-16.0 Blood hematocrit (volume fraction) 42 % 35-52 Automated erythrocyte mean corpuscular volume 87 [foz_us] 80-99 Automated erythrocyte mean corpuscular hemoglobin (mass per erythrocyte) 29 pg 25-34 Automated erythrocyte mean corpuscular hemoglobin concentration measurement ( mass/volume) 33 g/dL 32-36 Automated erythrocyte distribution width ratio 14.2 % 10.0-14.5 Automated blood platelet count (count/volume) 306 10*3/uL 130-400 Automated blood platelet mean volume measurement 10.8 [foz_us] 7.4-10.4 Automated blood neutrophils/100 leukocytes 54 % 42-75 Automated blood lymphocytes/100 leukocytes 36 % 12-44 Blood monocytes/100 leukocytes 7 % 0-12 Automated blood eosinophils/100 leukocytes 2 % 0-10 Automated blood basophils/100 leukocytes 0 % 0-10 Blood neutrophils automated count (number/volume) 5.8 10*3 1.8-7.8 Blood lymphocytes automated count (number/volume) 3.9 10*3 1.0-4.0 Blood monocytes automated count (number/volume) 0.8 10*3 0.0-1.0 Automated eosinophil count 0.2 10*3/uL 0.0-0.3 Automated blood basophil count (count/volume) 0.0 10*3/uL 0.0-0.1 PT panel in platelet poor plasma by coagulation assay - 05/09/18 21:15 Prothrombin time (PT) in platelet poor plasma by coagulation assay 12.2 s 12.2-14.7 INR in platelet poor plasma or blood by coagulation assay 0.9 0.8-1.4 Activated partial thromboplastin time (aPTT) in platelet poor plasma bycoagulation assay - 05/09/18 21:15 Activated partial thromboplastin time (aPTT) in platelet poor plasma bycoagulation assay 26 s 24-35 Serum or plasma choriogonadotropin ( test) detection - 05/09/18 21:15 Serum or plasma choriogonadotropin ( test) detection NEGATIVE NEGATIVE Comprehensive metabolic panel - 05/09/18 21:15 Serum or plasma sodium measurement (moles/volume) 138 mmol/L 135-145 Serum or plasma potassium measurement (moles/volume) 4.1 mmol/L 3.6-5.0 Serum or plasma chloride measurement (moles/volume) 109 mmol/L 98-107 Carbon dioxide 19 mmol/L 21-32 Serum or plasma anion gap determination (moles/volume) 10 mmol/L 5-14 Serum or plasma urea nitrogen measurement (mass/volume) 15 mg/dL 7-18 Serum or plasma creatinine measurement (mass/volume) 0.83 mg/dL 0.60-1.30 Serum or plasma urea nitrogen/creatinine mass ratio 18 NRG Serum or plasma creatinine measurement with calculation of estimated glomerular filtration rate > NRG Serum or plasma glucose measurement (mass/volume) 106 mg/dL 70-105 Serum or plasma calcium measurement (mass/volume) 8.9 mg/dL 8.5-10.1 Serum or plasma total bilirubin measurement (mass/volume) 0.4 mg/dL 0.1-1.0 Serum or plasma alkaline phosphatase measurement (enzymatic activity/volume) 116 U/L 40-136 Serum or plasma aspartate aminotransferase measurement (enzymatic activity/ volume) 15 U/L 5-34 Serum or plasma alanine aminotransferase measurement (enzymatic activity/volume ) 33 U/L 0-55 Serum or plasma protein measurement (mass/volume) 6.9 g/dL 6.4-8.2 Serum or plasma albumin measurement (mass/volume) 3.9 g/dL 3.2-4.5 CALCIUM CORRECTED 9.0 mg/dL 8.5-10.1 Magnesium - 05/09/18 21:15 Magnesium 2.4 mg/dL 1.8-2.4 Serum or plasma creatine kinase measurement (enzymatic activity/volume) - 05/09 21:15 Serum or plasma creatine kinase measurement (enzymatic activity/volume) 42 U/L 29-168 Serum or plasma creatine kinase MB measurement (enzymatic activity/volume) - 21:15 Serum or plasma creatine kinase MB measurement (enzymatic activity/volume) 0.7 ng/mL <6.6 Lipase - 05/09/18 21:15 Lipase 5 U/L 8-78 Serum or plasma troponin i.cardiac measurement (mass/volume) - 05/09/18 21:15 Serum or plasma troponin i.cardiac measurement (mass/volume) < ng/ mL <0.30 Myoglobin, serum - 05/09/18 21:15 Myoglobin, serum 12.4 ng/mL 10.0-92.0 Serum or plasma amylase measurement (enzymatic activity/volume) - 05/09/18 21: 15 Serum or plasma amylase measurement (enzymatic activity/volume) 25 U /L 25-125 Serum or plasma lithium measurement (moles/volume) - 05/09/18 21:15 BNP level 20.3 pg/mL <100.0 Serum or plasma troponin i.cardiac measurement (mass/volume) - 05/10/18 00:26 Serum or plasma troponin i.cardiac measurement (mass/volume) < ng/ mL <0.30 Encounters ACCT No. Visit Date/Time Discharge Status Pt. Type Provider Facility Loc./Unit Complaint [id number] 10/22/2014 10:39:00 10/22/2014 23:59:59 CLS Outpatient TIFFANY CANELA APRN [id number] 05/30/2013 11:14:00 05/30/2013 23:59:59 CLS Outpatient DINORAH SCHNEIDER DO [id number] 10/03/2012 14:05:00 10/03/2012 23:59:59 CLS Outpatient [id number] 09/06/2012 15:25:00 09/06/2012 23:59:59 CLS Outpatient DINORAH SCHNEIDER DO [id number] 08/12/2012 16:45:00 08/12/2012 23:59:59 CLS Outpatient [id number] 07/03/2012 11:27:00 07/03/2012 23:59:59 CLS Outpatient [id number] 05/28/2012 15:15:00 05/28/2012 23:59:59 CLS Outpatient DINORAH SCHNEIDER DO [id number] 12/26/2012 12:20:00 Document Registration [id number] 12/03/2012 13:42:00 Document Registration [id number] 11/05/2012 14:12:00 Document Registration [id number] 10/11/2016 09:15:00 Document Registration [id number] 08/22/2018 09:10:00 08/22/2018 23:59:59 CLS Outpatient [facility] [id number] 05/09/2018 21:06:00 05/10/2018 02:04:00 DIS Emergency JYOTHI MCDOWELL DO [facility] ER CP, L ARM PAIN [id number] 10/29/2014 13:40:00 10/29/2014 23:59:59 CLS Outpatient TIFFANY CANELA APRN [facility] RAD DATING [id number] 10/28/2018 13:13:00 ACT Emergency SAMUEL CARLTON [facility] ER CONGESTION [id number] 08/16/2012 10:17:00 Document Registration [id number] 08/04/2012 18:36:00 Document Registration
[2018-10-28] MEDS ORDERED: RT-ALBUTEROL/IPRATROPIUM 3 ML (DUONEB) VIAL INH ONE (13:45)
--- NOTE | 2018-10-28 13:49 | ED Cough/URI ---
General Chief Complaint: Cough/Cold/Flu Symptoms Stated Complaint: CONGESTION Nursing Triage Note: PT PRESENT TO THE ED AMBULATORY, STATES SHE HAS EXPERIENCED A NON PRODUCTIVE COUGH FOR THE LAST WEEK THAT HAS PROGRESSED IN INTENSITY, PT VERBALIZES MILD EXERTIONAL DYSPNEA Sepsis Screen: No Definite Risk Source: patient Exam Limitations: no limitations History of Present Illness Date Seen by Provider: Oct 28, 2018 Time Seen by Provider: 13:30 Initial Comments 32-year-old female who presents to the emergency room with complaints of a nonproductive cough, intermittent fevers with nasal congestion for the past week. She reports history of asthma and has been having mild shortness of breath. She is wheezing on auscultation on arrival to the emergency room. Timing/Duration: week Associated Symptoms: cough, fever/chills, nasal congestion Allergies and Home Medications Allergies Coded Allergies: No Known Drug Allergies (Unverified , 08/04/12) Home Medications Albuterol 8.5 Gm Hfa.aer.ad, 8.5 GM IH Q4H, (Reported) 2 PUFFS Albuterol Sulfate 1 Puff Puff, 2 PUFF IH Q4H PRN for WHEEZING 1 PUFF = 90 MCG Prescribed by: SAMUEL CARLTON on 10/28/181417 Azithromycin 250 Mg Tablet, 250 MG PO UD TAKE 2 TABLETS TODAY, THEN TAKE 1 TABLET DAILY FOR 4 MORE DAYS Prescribed by: SAMUEL CARLTON on 10/28/181417 Ibuprofen 800 Mg Tab, 800 MG PO Q8HR PRN Prescribed by: LESA AGGARWAL on 08/04/121937 Pantoprazole Sodium 40 Mg Tablet.dr, 40 MG PO DAILY Prescribed by: JYOTHI MCDOWELL on 05/10/18134 Prednisone 20 Mg Tab, 40 MG PO DAILY Prescribed by: SAMUEL CARLTON on 10/28/181417 Salmeterol Xinaf/Fluticasone 1 Diskus Inhp, 0 INH Q12HR, (Reported) 1 PUFF Tramadol Hcl 50 Mg Tab, 50 MG PO Q4H Prescribed by: LESA AGGARWAL on 08/04/121937 Patient Home Medication List Home Medication List Reviewed: Yes Review of Systems Review of Systems Constitutional: see HPI, chills, fever Respiratory: see HPI, cough, wheezing All Other Systems Reviewed Negative Unless Noted: Yes Past Eoefnxf-Xcaysd-Cgphza Hx Past Med/Social Hx: Reviewed Nursing Past Med/Soc Hx Patient Social History Type Used: Cigarettes Recent Foreign Travel: No Contact w/Someone Who Travel: No Recent Infectious Disease Expo: No Recent Hopitalizations: No Immunizations Up To Date Tetanus Booster (TDap): Unknown Seasonal Allergies Seasonal Allergies: No Past Medical History Surgeries: Yes Gallbladder, Tubal Ligation Respiratory: Yes Asthma Cardiac: Yes Hypertension Neurological: No : No Last Menstrual Period: Oct 22, 2018 Reproductive Disorders: No Female Reproductive Disorders: Menstrual Problems MANAGER OF IT History: Tubal Ligation Genitourinary: No Gastrointestinal: No Musculoskeletal: No Endocrine: Yes Diabetes, Non-Insulin dep HEENT: No Cancer: No Psychosocial: Yes Anxiety, Depression Integumentary: No Family Medical History Reviewed Nursing Family Hx Physical Exam Vital Signs - First Documented Capillary Refill : Less Than 3 Seconds Height: 5'7.00" Weight: 315lbs. oz. 142.176122te; 39.15 BMI Method:Stated General Appearance: WD/WN, no apparent distress HEENT: PERRL/EOMI, normal ENT inspection, TMs normal, pharynx normal Respiratory: chest non-tender, no respiratory distress, no accessory muscle use , wheezing Cardiovascular: normal peripheral pulses, regular rate, rhythm, no edema, no gallop, no JVD, no murmur Neurologic/Psychiatric: alert, normal mood/affect, oriented x 3 Skin: normal color, warm/dry Progress/Results/Core Measures Suspected Sepsis Recent Fever Within 48 Hours: No Infection Criteria Present: None New/Unexplained Altered Menta: No Sepsis Screen: No Definite Risk SIRS Temperature:97.9 Pulse: 107 Respiratory Rate: 20 Blood Pressure 155 /81 Mean: 105 Results/Orders Micro Results Microbiology 10/28/18 Influenza Types A,B Antigen (MC) - Final, Complete My Orders Orders - BERNOT,SAMUEL Albuterol/Ipra Inhalation Soln (Duoneb I (10/28/18 13:45) Svn Small Volume Nebulizer (10/28/18 13:38) Chest 1 View, Ap/Pa Only (10/28/18 13:38) Influenza A And B Antigens (10/28/18 13:38) Rx-Albuterol Inhaler (Rx-Proair) (10/28/18 14:33) Medications Given in ED Vital Signs/I&O 10/28/18 10/28/18 10/28/18 13:19 13:19 14:37 Temp 97.9 97.8 Pulse 107 88 Resp 20 22 B/P (MAP) 155/81 (105) 126/97 (107) Pulse Ox 95 97 O2 Delivery Room Air Room Air Room Air Capillary Refill : Less Than 3 Seconds Blood Pressure Mean: 105 Progress Note : Time: 14:11 Progress Note I have seen and evaluated the patient. I have informed her of her imaging studies. Her breath sounds are clear after treatment. She agrees with plan of care, plans for discharge, return precautions were given. Departure Impression Primary Impression: Bronchitis Disposition: HOME, SELF-CARE Condition: Stable/Unchanged Departure-Patient Inst. Decision time for Depature: 14:11 Referrals: NO,LOCAL PHYSICIAN (PCP/Family) Primary Care Physician Patient Instructions: Acute Bronchitis, Adult (DC) Add. Discharge Instructions: Take medications as directed. You may continue to use kmlc-mag-tosfnfh cold cough flu medications. Tylenol and Motrin as needed for pain and fever. Do not exceed your daily limits of these medications. Drink plenty of fluids to stay hydrated. Follow-up with your primary care provider within 1 week for recheck. Return back to the emergency room for worsening symptoms or concerns as needed. All discharge instructions reviewed with patient and/or family. Voiced understanding. Scripts Prednisone (Prednisone) 20 Mg Tab 40 MG PO DAILY, #10 TAB Prov: SAMUEL CARLTON 10/28/18 Azithromycin (Zithromax) 250 Mg Tablet 250 MG PO UD, #6 TAB TAKE 2 TABLETS TODAY, THEN TAKE 1 TABLET DAILY FOR 4 MORE DAYS Prov: SAMUEL CARLTON 10/28/18 Albuterol Sulfate (VENTOLIN HFA) 1 Puff Puff 2 PUFF IH Q4H PRN for WHEEZING, #1 INHALER 1 PUFF = 90 MCG Prov: SAMUEL CARLTON 10/28/18 Work/School Note: Work Release Form Date Seen in the Emergency Department: Oct 28, 2018 Return to Work: Oct 30, 2018 Restrictions: No Restrictions SAMUEL CARLTON Oct 28, 2018 13:49
--- NOTE | 2018-10-28 14:05 | Diagnostic Imaging Report ---
PATIENT HISTORY: Cough, dyspnea. TECHNIQUE: Single frontal view of the chest. COMPARISON: 05/09/2018. FINDINGS: The lung volumes are normal. No focal consolidation is seen. No large pleural effusion or pneumothorax is seen. The cardiomediastinal silhouette is normal in size and contour. No acute osseous abnormality is seen. IMPRESSION: No acute pulmonary abnormality is seen. Dictated by: Dictated on workstation # [id number]
[2018-10-28] MEDS ORDERED: PRD20T PO (14:18)
[2018-10-28] MEDS ORDERED: RT-ALBUINH IH (14:18)
[2018-10-28] MEDS ORDERED: AZIT250T PO (14:18)
[2018-10-28] MEDS ORDERED: RX-ALBUTEROL INHALER (PROAIR) 8 GM IH STA (14:33)
[2018-10-28 14:37] VITALS: BP 126/97
== END 2018-10-28 14:37 | disposition home or self-care (01) ==
LOC: EDUNIT# 13:12 → ER 13:13
DX: J40 Bronchitis, not specified as acute or chronic (principal); J45.909 Unspecified asthma, uncomplicated; I10 Essential (primary) hypertension; E11.9 Type 2 diabetes mellitus without complications; F41.9 Anxiety disorder, unspecified; F32.9 Major depressive disorder, single episode, unspecified; Z79.52 Long term (current) use of systemic steroids; Z98.51 Tubal ligation status; Z98.890 Other specified postprocedural states
CPT/HCPCS: 71045; 87804